=== PATIENT | female | born 1970 | race Two or more races ===

== ENCOUNTER 2016-12-15 11:53 | Emergency (ER) | payer MEDICAID ==
[~2016-12-15] VITALS: Ht 172.7 cm; Wt 63.5 kg
[2016-12-15 12:00] VITALS: BP 153/97
[2016-12-15] MEDS ORDERED: LORazepam Inj 2mg/ml 1ml IV ONE (12:00)
[2016-12-15] MEDS ORDERED: DiphenhydrAMINE 50mg/ml Inj IVP ONE (12:00)
[2016-12-15 12:28] LABS: BASOPHILS % (AUTO) 0.9 % (0.0-2.0); EOSINOPHILS % (AUTO) 1.8 % (0.0-3.0); LYMPHOCYTES % (AUTO) 29.3 % (20.0-45.0); MEAN CORPUSCULAR HEMOGLOBIN 28.6 PG (27.0-31.0); MEAN CORPUSCULAR HGB CONC 33.4 G/DL (32.0-36.0); MEAN CORPUSCULAR VOLUME 86 FL (80-99); MEAN PLATELET VOLUME 7.3 FL (6.5-10.1); NEUTROPHILS % (AUTO) 61.9 % (45.0-75.0); PLATELET COUNT 331 K/UL (150-450); RED BLOOD COUNT 5.75 M/UL (4.20-5.40); RED CELL DISTRIBUTION WIDTH 11.4 % (11.6-14.8)
[2016-12-15] MEDS ORDERED: HYDROmorphone 1 MG, DiphenhydrAMINE 25 MG in NS 55 ML IV ONE (12:45)
[2016-12-15 12:47] LABS: ALANINE AMINOTRANSFERASE 12 U/L (3-33); ALBUMIN/GLOBULIN RATIO 1.3 (1.0-2.7); ANION GAP 22 (5-15); ASPARTATE AMINO TRANSFERASE 17 U/L (5-40); CALCIUM 10.3 mg/dL (8.6-10.2); CARBON DIOXIDE 24 mEQ/L (20-30); CHLORIDE 95 mEQ/L (98-107); CREATININE 0.9 mg/dL (0.5-0.9); GLOMERULAR FILTRATION RATE > 60 mL/min (>60); HEMOLYSIS 1; LIPASE 46 U/L (< 60); POTASSIUM 3.2 mEQ/L (3.4-4.9); SODIUM 141 mEQ/L (135-145); TOTAL PROTEIN 7.9 g/dL (6.6-8.7); TROPONIN I < 0.30 ng/mL (<=0.30)
[2016-12-15 12:55] VITALS: BP 164/97
[2016-12-15 12:57] LABS: CKMB < 1.5 ng/mL (< 3.8)
--- NOTE | 2016-12-15 13:04 | Diagnostic Imaging Report ---
Indication: Chest Pain Comparison: None A single view chest radiograph was obtained. Findings: Cardiomediastinal appearance is within normal limits for age. Pulmonary vascularity is appropriate. The diaphragmatic contour is smooth and costophrenic angles are sharp. No pleural effusions are identified. The bones are unremarkable. Impression: No acute findings
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
[2016-12-15] MEDS ORDERED: NS 55 ML IV ONE (13:18)
[2016-12-15] MEDS ORDERED: HYDROmorphone 1mg/ml Carpuject ONE (13:18)
[2016-12-15 14:23] LABS: APPEARANCE,URINE CLEAR; KETONES,URINE 4+ (NEGATIVE); LEUKOCYTE ESTERASE ,URINE 3+ (NEGATIVE); NITRITE,URINE NEGATIVE (NEGATIVE); PH,URINE 6 (4.5-8.0); PROTEIN,URINE 1+ (NEGATIVE); UROBILINOGEN,URINE NORMAL MG/DL (0.0-1.0)
[2016-12-15 14:33] LABS: BACTERIA,URINE FEW /HPF; SQUAMOUS EPITHELIAL CELL,UR FEW /LPF (NONE/OCC)
[2016-12-15 15:00] VITALS: BP 139/97
--- NOTE | 2016-12-15 15:17 | Diagnostic Imaging Report ---
Indication: Abdominal pain Technique: Continuous helical transaxial imaging of the abdomen and pelvis was obtained from the lung bases to the pubic symphysis. No intravenous contrast was administered. Coronal 2-D reformats were also obtained. Total Dose length Product (DLP): [address] Dose Index Volume (CTDIvol): 18 mGy Comparison: none Findings: The lung bases appear clear. Small gallstone suspected. Hiatal hernia is present. Hypodensity noted in the right kidney measuring 1.7 cm. Small nonobstructive stone upper pole right kidney noted. No hydronephrosis seen. No free fluid or free air seen. Appendix not definitely identified. No secondary signs of appendicitis are present. No evidence of bowel obstruction. Urinary bladder is nondistended. Impression: Nonobstructive nephrolithiasis involving the right kidney. Small gallstone. 1.7 cm hypodensity right kidney. Cystic versus solid. The CT scanner at [facility] is accredited by the [employer] and the scans are performed using protocols designed to limit radiation exposure to as low as reasonably achievable to attain images of sufficient resolution adequate for diagnostic evaluation.
--- NOTE | 2016-12-15 15:18 | Diagnostic Imaging Report ---
Indication: Dizziness Technique: Contiguous 5 mm thick transaxial imaging of the head obtained in a Siemens Sensation [address] scanner. Soft tissue and bone windows generated. Total Dose length Product (DLP): [address] Dose Index Volume (CTDIvol): 70.38 mGy Comparison: none Findings: The size and configuration of the cortical sulci, basal cisterns, and ventricles are within normal limits for age. There is no mass effect, midline shift, or edema identified. There is no evidence of acute hemorrhage or abnormal intra-axial or extra-axial fluid collections. The bones and soft tissues are unremarkable. Impression: No mass effect, edema or acute bleed. The CT scanner at [facility] is accredited by the [employer] and the scans are performed using protocols designed to limit radiation exposure to as low as reasonably achievable to attain images of sufficient resolution adequate for diagnostic evaluation.
[2016-12-15] MEDS ORDERED: cefTRIAXone 1 GM in D5W 55 ML IVPB ONE (16:00)
[2016-12-15 16:54] VITALS: BP 153/97
[2016-12-15] MEDS ORDERED: NITROFURANTOIN100 M2 ORAL (17:01)
[2016-12-15] MEDS ORDERED: ZOFRAN ODT4 MG ORAL (17:13)
[2016-12-15 17:34] VITALS: BP 140/88
[2016-12-15 17:52] VITALS: BP 134/92
--- NOTE | 2016-12-16 17:33 | Cardiology Report ---
APPROVED REPORT EKG Measurement Heart [id number] Sinus tachycardia Incomplete RBBB Nonspecific T wave abnormality Abnormal ECG
== END 2016-12-15 17:52 | disposition home or self-care (01) ==
LOC: ENRESERVDT → ENRESERVTM → EDBD 11:53 → EMR 12:27 → UNDOADMIN 12:37 → 2E 12:37 → EDBEDREQ 12:44 → CANBEDREQ 16:57 → EMR 17:52
DX: R11.2 Nausea with vomiting, unspecified (principal); F13.239 Sedative, hypnotic or anxiolytic dependence with withdrawal, unspecified; Z88.0 Allergy status to penicillin; I10 Essential (primary) hypertension; E11.9 Type 2 diabetes mellitus without complications; J45.909 Unspecified asthma, uncomplicated; R00.2 Palpitations; N39.0 Urinary tract infection, site not specified; N20.0 Calculus of kidney; K80.80 Other cholelithiasis without obstruction
CPT/HCPCS: 36415; 70450; 71010; 74176; 80053; 80300; 81003; 81025; 82550; 82553; 82962; 83690; 84484; 85025; 93005; 96374; 96375; 99284; J0696; J1170; J1200; J2405; J7040

== ENCOUNTER 2016-12-16 04:32 | Emergency (ER) | payer MEDICAID ==
[~2016-12-16] VITALS: Ht 165.1 cm; Wt 72.6 kg
[~2016-12-16 04:32] MED LIST: NITROFURANTOIN100 M2 ORAL; ZOFRAN ODT4 MG ORAL
[2016-12-16] MEDS ORDERED: Tubing IV Cassette IV ONE (04:51)
[2016-12-16 04:58] LABS: EOSINOPHILS % (AUTO) 2.1 % (0.0-3.0); LYMPHOCYTES % (AUTO) 28.3 % (20.0-45.0); MEAN CORPUSCULAR HGB CONC 33.6 G/DL (32.0-36.0); MEAN CORPUSCULAR VOLUME 86 FL (80-99); MONOCYTES % (AUTO) 7.8 % (1.0-10.0); NEUTROPHILS % (AUTO) 60.7 % (45.0-75.0); PLATELET COUNT 270 K/UL (150-450); RED BLOOD COUNT 5.14 M/UL (4.20-5.40); RED CELL DISTRIBUTION WIDTH 11.5 % (11.6-14.8); WHITE BLOOD COUNT 7.9 K/UL (4.8-10.8)
[2016-12-16] MEDS ORDERED: Metoclopramide 10mg/2ml Inj IVP ONE (05:00)
[2016-12-16] MEDS ORDERED: Ketorolac 30mg Inj IV ONE (05:00)
[2016-12-16 05:11] LABS: ALANINE AMINOTRANSFERASE 14 U/L (3-33); ALBUMIN/GLOBULIN RATIO 1.1 (1.0-2.7); ANION GAP 18 (5-15); ASPARTATE AMINO TRANSFERASE 32 U/L (5-40); CALCIUM 9.8 mg/dL (8.6-10.2); CARBON DIOXIDE 25 mEQ/L (20-30); CHLORIDE 97 mEQ/L (98-107); CREATININE 0.9 mg/dL (0.5-0.9); GLOMERULAR FILTRATION RATE > 60 mL/min (>60); HEMOLYSIS 276; POTASSIUM 4.9 mEQ/L (3.4-4.9); SODIUM 140 mEQ/L (135-145); TOTAL PROTEIN 7.5 g/dL (6.6-8.7)
[2016-12-16 05:59] VITALS: BP 147/88
[2016-12-16 06:00] VITALS: BP 147/88
--- NOTE | 2016-12-16 21:14 | Emergency Room Report ---
History of Present Illness General Chief Complaint: Headache Source: Patient, Family Member Present Illness HPI 46-year-old female presents to ED complaining of headache with nausea and vomiting. Notes headache last 4 days. Pain is a 10 out of 10, sharp, localized across. Nonradiating. Denies photophobia, blurry vision. Notes nausea and vomiting. Patient notes history of headaches and is no different than her prior headaches. Patient was seen here yesterday morning for the same complaint. Patient has [place] of [place] [facility] [place] is currently under management for pain control. Denies any fevers or chills. No other aggravating relieving factors. Denies any other associated symptoms Allergies: Coded Allergies: PENICILLINS (Verified Allergy, Unknown, 12/15/16) Patient History Past Medical History: DM, HTN, asthma Past Surgical History: none Pertinent Family History: none Social History: Denies: alcohol use, drug use, smoking Now: No Immunizations: UTD Reviewed Nursing Documentation: PMH: Agreed, PSxH: Agreed Nursing Documentation-PMH Hx Hypertension: Yes Hx Asthma: Yes Hx Diabetes: Yes Review of Systems All Other Systems: negative except mentioned in HPI Physical Exam Vital Signs Date Time Temp Pulse Resp B/P Pulse Ox O2 Delivery O2 Flow Rate FiO2 12/16/16 04:36 97.2 112 18 158/98 98 Room Air Sp02 EP Interpretation: reviewed, normal General Appearance: alert, GCS 15, non-toxic, mild distress Head: normocephalic Eyes: bilateral eye PERRL, bilateral eye normal inspection ENT: hearing grossly normal, normal pharynx, no angioedema, normal voice Neck: full range of motion, supple, no meningismus, supple/symm/no masses Respiratory: chest non-tender, lungs clear, normal breath sounds, speaking full sentences Cardiovascular #1: regular rate, rhythm, no edema Gastrointestinal: normal inspection Rectal: deferred Genitourinary: no CVA tenderness Musculoskeletal: normal inspection Neurologic: alert, oriented x3, responsive, motor strength/tone normal, sensory intact, speech normal Psychiatric: judgement/insight normal, memory normal, mood/affect normal, no suicidal/homicidal ideation, anxious Skin: normal color, no rash, warm/dry, well hydrated Lymphatic: normal inspection Medical Decision Making Diagnostic Impression: Primary Impression: Medication withdrawal Qualified Codes: F11.23 - Opioid dependence with withdrawal Additional Impressions: Vomiting Qualified Codes: R11.2 - Nausea with vomiting, unspecified Headache Qualified Codes: R51 - Headache Opiate dependence Qualified Codes: F11.29 - Opioid dependence with unspecified opioid-induced disorder ER Course Hospital Course 46-year-old female presents to ED complaining of headaches, with nausea/vomiting Differential diagnoses include: tension headache, migraine, dehydration, intracranial bleed Clinical course Patient placed on stretcher. After initial history and physical I ordered labs , IV fluids, Reglan, Toradol Labs reviewed- electrolytes okay, no leukocytosis, hemoglobin/hematocrit stable I reviewed EMR patient was seen here yesterday morning. Patient workup which showed urine positive bacteria. Patient has extensive substance abuse problems. U. tox at that time showed positive opiates and benzos. Patient was subsequently discharged on antibiotics and Zofran I reviewed patient CURES; patient has extensive control substance prescriptions on a monthly basis. I explained to the patient and provide her with any additional prescriptions at this time. Provide her with any additional medication in the ER. Patient states she does have the medications at home and would like to take them. I tell the patient if she wants to take medications at home she is free to do so but will be discharged i. I feel this is a highly complex case requiring extensive working including EKG/Rhythm strip, Xray/CT/US, Blood/urine lab work, repeat exams while in ED, and administration of strong opiates/narcotics for pain control, admission to hospital or close patient follow up. Diagnosis - medication withdrawal, vomiting, headache, opioid dependence stable and discharged to home. Take the antibiotics and Zofran as prescribed previously. F/up with PMD. return to ED if symptoms recur/worsen. Labs Test 12/16/16 04:50 White Blood Count 7.9 K/UL (4.8-10.8) Red Blood Count 5.14 M/UL (4.20-5.40) Hemoglobin 14.9 G/DL (12.0-16.0) Hematocrit 44.4 % (37.0-47.0) Mean Corpuscular Volume 86 FL (80-99) Mean Corpuscular Hemoglobin 29.0 PG (27.0-31.0) Mean Corpuscular Hemoglobin Concent 33.6 G/DL (32.0-36.0) Red Cell Distribution Width 11.5 % (11.6-14.8) Platelet Count 270 K/UL (150-450) Mean Platelet Volume 7.0 FL (6.5-10.1) Neutrophils (%) (Auto) 60.7 % (45.0-75.0) Lymphocytes (%) (Auto) 28.3 % (20.0-45.0) Monocytes (%) (Auto) 7.8 % (1.0-10.0) Eosinophils (%) (Auto) 2.1 % (0.0-3.0) Basophils (%) (Auto) 1.0 % (0.0-2.0) Sodium Level 140 mEQ/L (135-145) Potassium Level 4.9 mEQ/L (3.4-4.9) Chloride Level 97 mEQ/L (98-107) Carbon Dioxide Level 25 mEQ/L (20-30) Anion Gap 18 (5-15) Blood Urea Nitrogen 7 mg/dL (7-23) Creatinine 0.9 mg/dL (0.5-0.9) Estimat Glomerular Filtration Rate > 60 mL/min (>60) Glucose Level 138 mg/dL (74-106) Calcium Level 9.8 mg/dL (8.6-10.2) Total Bilirubin 0.4 mg/dL (0.0-1.2) Aspartate Amino Transf (AST/SGOT) 32 U/L (5-40) Alanine Aminotransferase (ALT/SGPT) 14 U/L (3-33) Alkaline Phosphatase 83 U/L (35-104) Total Protein 7.5 g/dL (6.6-8.7) Albumin 4.0 g/dL (3.5-5.2) Globulin 3.5 g/dL Albumin/Globulin Ratio 1.1 (1.0-2.7) Last Vital Signs Date Time Temp Pulse Resp B/P Pulse Ox O2 Delivery O2 Flow Rate FiO2 12/16/16 06:00 97.1 98 14 147/88 99 Room Air Status: improved Disposition: HOME, SELF-CARE Condition: Stable Referrals: SAUL DAVIS,REFERRING (PCP) Patient Instructions: Chemical Dependency XIOMY SIFUENTES M.D. December 16, 2016 21:14
== END 2016-12-16 06:00 | disposition home or self-care (01) ==
LOC: EDBD 04:32 → EMR 05:28
DX: F11.23 Opioid dependence with withdrawal (principal); F11.29 Opioid dependence with unspecified opioid-induced disorder; R51 Headache; R11.2 Nausea with vomiting, unspecified; E11.9 Type 2 diabetes mellitus without complications; I10 Essential (primary) hypertension; J45.909 Unspecified asthma, uncomplicated; Z88.0 Allergy status to penicillin
CPT/HCPCS: 36415; 80053; 85025; 96360; 96374; 96375; 99284; J1885; J2765

== ENCOUNTER 2018-02-15 13:25 | Emergency (ER) | payer MEDICAID ==
[~2018-02-15] VITALS: Ht 165.1 cm; Wt 79.4 kg
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
[2018-02-15] MEDS ORDERED: Norco 5mg/325mg tab ORAL ONE (14:00)
[2018-02-15] MEDS ORDERED: Ketorolac 30mg Inj IM ONE (14:00)
[2018-02-15 14:24] VITALS: BP 145/98
[2018-02-15 14:25] VITALS: BP 145/98
== END 2018-02-15 14:25 | disposition home or self-care (01) ==
LOC: EDBD 13:25 → EMR 14:10
DX: F11.20 Opioid dependence, uncomplicated (principal); M25.562 Pain in left knee; I10 Essential (primary) hypertension; J45.909 Unspecified asthma, uncomplicated; E11.9 Type 2 diabetes mellitus without complications; Z88.0 Allergy status to penicillin
CPT/HCPCS: 96372; 99283; J1885